=== PATIENT | female | born 1950 | race Caucasian/White ===

== ENCOUNTER 2017-07-26 21:41 | Emergency (ER) | payer BC, OTHER ==
[2017-07-26] MEDS ORDERED: NA CHLORIDE 0.9% 1,000 ML ONE (22:47)
[2017-07-26] MEDS ORDERED: FENTANYL CITR 100 MCG/2 ML ONE (22:47)
[2017-07-26] MEDS ORDERED: ONDANSETRON 4 MG/2 ML VIAL ONE (22:47)
[2017-07-26 23:02] LABS: Absolute Monocytes 0.9 K/uL (0.1-1.3); Absolute Neutrophil 8.1 K/uL (1.8-8.0); Basophils % 0.5 % (0-1.3); Eosinophils % 1.7 % (0-4.4); Hematocrit 33.4 % (36.0-45.0); Lymphocytes % 17.9 % (15.3-44.8); MCH 31.4 pg (27.0-35.0); MCV 92.1 fL (80-100); MPV 7.3 fL (7.6-11.3); Monocytes % 8.3 % (3.3-12.3); RBC Red Blood Cell Count 3.63 M/uL (3.86-4.86)
[2017-07-26 23:09] LABS: Protime INR 1.11
[2017-07-26 23:11] LABS: Potassium 3.8 mEq/L (3.6-5.0)
[2017-07-26 23:17] LABS: Albumin 3.8 g/dL (3.2-5.5); Bilirubin Direct 0.1 mg/dL (0-0.2); Bilirubin Total 0.6 mg/dL (0.3-1.2); Magnesium 1.9 mg/dL (1.8-2.5); Protein, Total 6.8 g/dL (6.0-8.3)
[2017-07-26 23:19] LABS: CKMB Creatine Kinase MB 1.3 ng/ml (0.3-4.0)
[2017-07-27] MEDS ORDERED: MORPHINE 10 MG/ML VIAL ONE (00:30)
[2017-07-27] MEDS ORDERED: ONDANSETRON 4 MG/2 ML VIAL ONE (00:32)
--- NOTE | 2017-07-27 01:10 | ER ---
Nurse's Notes [facility] Name: Alise Snow Age: 66 yrs Sex: Female : 1950 Arrival Date: 07/26/2017 Time: 21:43 Bed 7 Private MD: Diagnosis: Headache;Urinary tract infection, site not specified;Migraine;Nausea Presentation: 07/26 21:47 Presenting complaint: Patient states: I have had a migraine and been nauseous since la1 1400. I have tried my PRN toradol at home and its not helping. Transition of care: patient was not received from another setting of care. Onset of symptoms was July 26, 2017. Care prior to arrival: None. 21:47 Method Of Arrival: Wheelchair la1 21:47 Acuity: GONZÁLEZ 3 la1 07/27 01:45 Mechanism of Injury: No Mechanism of Injury. tl1 Triage Assessment: 07/26 22:37 Headache History: The patient has had previous headaches. General: Appears in no ao apparent distress. comfortable. General: Behavior is calm, cooperative, appropriate for age. Pain: Pain currently is 10 out of 10 on a pain scale. Pain began 2-3 days ago. Also complains of no other associated symptoms. Historical: - Allergies: 21:52 Potassium Chloride; can only take IV form; la1 21:52 Uknown abx (triliptipine?); la1 - PMHx: 21:52 Diabetes - NIDDM; High Cholesterol; Anemia; Anxiety; Migraines; Hypertension; CHF; la1 COPD; back pain; CVA; TIA; - PSHx: 21:52 stent for aneurysm in brain; heart cath; Cholecystectomy; Hysterectomy; la1 - Immunization history:: Adult Immunizations up to date. - Social history:: Smoking status: Patient/guardian denies using tobacco. - Family history:: not pertinent. Screenin:36 Abuse screen: Denies threats or abuse. Denies injuries from another. Nutritional ao screening: No deficits noted. Tuberculosis screening: No symptoms or risk factors identified. Fall Risk None identified. Assessment: 22:32 General: Appears in no apparent distress. comfortable, Behavior is calm, cooperative, ao appropriate for age. Pain: Complains of pain in Migraine. Neuro: Level of Consciousness is awake, alert, obeys commands, Oriented to person, place, time, situation, Appropriate for age Moves all extremities. Speech is normal, Facial symmetry appears normal, Pupils are PERRLA. Cardiovascular: Capillary refill < 3 seconds Patient's skin is warm and dry. Respiratory: Airway is patent Respiratory effort is even, unlabored, Respiratory pattern is regular, symmetrical. GI: Abdomen is obese. : No signs and/or symptoms were reported regarding the genitourinary system. EENT: No signs and/or symptoms were reported regarding the EENT system. Derm: No signs and/or symptoms reported regarding the dermatologic system. Musculoskeletal: No signs and/or symptoms reported regarding the musculoskeletal system. 23:32 Reassessment: Patient appears in no apparent distress at this time. Patient and/or ao family updated on plan of care and expected duration. Pain level reassessed. Patient is alert, oriented x 3, equal unlabored respirations, skin warm/dry/pink. Patient still had pain. Dr Alamo notified. 07/27 00:39 Reassessment: Patient appears in no apparent distress at this time. Patient and/or ao family updated on plan of care and expected duration. Pain level reassessed. Patient is alert, oriented x 3, equal unlabored respirations, skin warm/dry/pink. 01:44 Reassessment: Patient and/or family updated on plan of care and expected duration. Pain tl1 level reassessed. Patient is alert, oriented x 3, equal unlabored respirations, skin warm/dry/pink. Patient states feeling better. Patient states symptoms have improved. Vital Signs: 07/26 21:52 BP 178 / 80; Pulse 57; Resp 16; Temp 98.1; Pulse Ox 100% on R/A; Weight 124.74 kg; la1 Height 5 ft. 1 in. (154.94 cm); 23:32 BP 158 / 66; Pulse 56; Resp 16; Pulse Ox 100% ; ao 07/27 00:20 BP 114 / 60; Pulse 55; Resp 16; Pulse Ox 100% ; ao 01:34 BP 159 / 77; Pulse 59; Resp 16; Temp 98.1; Pulse Ox 98% ; Pain 5/10; tl1 07/26 21:52 Body Mass Index 51.96 (124.74 kg, 154.94 cm) la1 ED Course: 07/26 21:43 Patient arrived in ED. es 21:48 Triage completed. la1 21:53 Arm band placed on left wrist. la1 22:12 Maurice Pino RN is Primary Nurse. ao 22:25 Juan Alamo MD is Attending Physician. jam 22:32 Inserted saline lock: 20 gauge in left antecubital area, using aseptic technique. ao ,using aseptic technique. Using ultrasound guided. 22:36 Patient has correct armband on for positive identification. Pulse ox on. NIBP on. ao 22:36 No provider procedures requiring assistance completed. ao 22:41 Head Brain Wo Cont CT In Process Unspecified. EDMS 23:29 XRAY Chest (1 view) In Process Unspecified. EDMS 04 00:50 Head angio In Process Unspecified. EDMS 01:09 Jefry Sam MD is Referral Physician. jam 01:27 Urine Dipstick--Ancillary (enter results) Sent. tl1 01:45 IV discontinued, intact, bleeding controlled, No redness/swelling at site. Pressure tl1 dressing applied. Administered Medications: 07/26 22:55 Drug: Zofran 4 mg Route: IVP; Site: left antecubital; ao 07/27 00:59 Follow up: Response: No adverse reaction ao 07/26 22:58 Drug: fentaNYL (PF) 50 mcg Route: IVP; Site: left antecubital; ao 07/27 00:58 Follow up: Response: No adverse reaction ao 00:58 Follow up: Response: Pain is unchanged, physician notified ao 07/26 23:00 Drug: NS 0.9% 1000 ml Route: IV; Rate: 1 bolus; Site: left antecubital; ao 07/27 01:48 Follow up: IV Status: Completed infusion tl1 00:54 Drug: Zofran 4 mg Route: IVP; Site: left antecubital; ao 01:26 Follow up: Response: No adverse reaction; Nausea is decreased tl1 00:58 Drug: morphine 2 mg Route: IVP; Site: left antecubital; ao 01:47 Follow up: Response: No adverse reaction; Marked relief of symptoms; Pain is decreased tl1 01:24 Drug: Rocephin - (cefTRIAXone) 1 grams Route: IVPB; Infused Over: 30 mins; Site: left tl1 antecubital; 01:38 Follow up: IV Status: Completed infusion tl1 01:24 Drug: Cipro 500 mg Route: PO; tl1 01:46 Follow up: Response: No adverse reaction; No change in condition tl1 01:25 Drug: Benadryl 25 mg Route: IVP; Infused Over: 2 mins; Site: left antecubital; tl1 01:46 Follow up: Response: No adverse reaction; Marked relief of symptoms; Pain is decreased tl1 01:26 Drug: TORadol 30 mg Route: IVP; Infused Over: 2 mins; Site: left antecubital; tl1 01:46 Follow up: Response: No adverse reaction; Marked relief of symptoms; Pain is decreased tl1 01:36 Drug: morphine 2 mg Route: IVP; Infused Over: 2 mins; Site: left antecubital; tl1 01:47 Follow up: Response: No adverse reaction; Marked relief of symptoms; Pain is decreased tl1 Outcome: 01:09 Discharge ordered by MD. polk 01:45 Discharged to home via wheelchair, with family. tl1 01:45 Condition: improved 01:45 Discharge instructions given to patient, family, Instructed on discharge instructions, follow up and referral plans. medication usage, Demonstrated understanding of instructions, follow-up care, medications, Prescriptions given X 3. 01:48 Patient left the ED. tl1 Addendum: 07/30/2017 08:22 Addendum: Culture Results: Positive urine culture. Bacteria is resistant to, has i w intermediate sensitivity, or is not tested against prescribed antibiotics. Report given to LORIE for further evaluation and then to industrial locomotive operator for follow up with patient. Phone call Attempt #1 pt phone is disconnected. Signatures: Dispatcher [employer] Juan Gill MD MD cha Salyer, Edna es Williams, Irene, RN RN iw Attema, Lee, RN RN la1 Amelia Heath RN RN tl1 Maurice Pino RN RN ao Corrections: (The following items were deleted from the chart) 07/27 01:36 00:20 BP 114 / 60; Pulse 55bpm; Resp 16bpm; Pulse Ox 100%; Pain 0/10; ao ao
--- NOTE | 2017-07-27 01:10 | EDPHYS ---
Physician Documentation [facility] Name: Alise Snow Age: 66 yrs Sex: Female : 1950 Arrival Date: 07/26/2017 Time: 21:43 Bed 7 Private MD: ED Physician Juan Alamo HPI: 07/26 22:34 This 66 yrs old Female presents to ER via Wheelchair with complaints of jam Headache. 22:34 The patient complains of pain to the top of head, forehead, left frontal area, left jam side of the back of head, left occipital area, right frontal area, right side of the back of head and right temporal area. The patient describes the headache as constant. Onset: The symptoms/episode began/occurred yesterday. Associated signs and symptoms: Pertinent positives: nausea. Severity of symptoms: At its worst the pain was moderate, in the emergency department the pain is unchanged. Headache History: The patient has had previous headaches and this one is similar to previous episodes. The symptoms are alleviated by nothing. the symptoms are aggravated by nothing. The patient has experienced similar episodes in the past, several times. Historical: - Allergies: 21:52 Potassium Chloride; can only take IV form; la1 21:52 Uknown abx (triliptipine?); la1 - PMHx: 21:52 Diabetes - NIDDM; High Cholesterol; Anemia; Anxiety; Migraines; Hypertension; CHF; la1 COPD; back pain; CVA; TIA; - PSHx: 21:52 stent for aneurysm in brain; heart cath; Cholecystectomy; Hysterectomy; la1 - Immunization history:: Adult Immunizations up to date. - Social history:: Smoking status: Patient/guardian denies using tobacco. - Family history:: not pertinent. ROS: 22:34 Constitutional: Negative for fever, chills, and weight loss, Eyes: Negative for injury, jam pain, redness, and discharge, ENT: Negative for injury, pain, and discharge, Neck: Negative for injury, pain, and swelling, Cardiovascular: Negative for chest pain, palpitations, and edema, Respiratory: Negative for shortness of breath, cough, wheezing, and pleuritic chest pain, Abdomen/GI: Negative for abdominal pain, nausea, vomiting, diarrhea, and constipation, Back: Negative for injury and pain, : Negative for injury, bleeding, discharge, and swelling, MS/Extremity: Negative for injury and deformity, Skin: Negative for injury, rash, and discoloration, Psych: Negative for depression, anxiety, suicide ideation, homicidal ideation, and hallucinations, Allergy/Immunology: Negative for hives, rash, and allergies, Endocrine: Negative for neck swelling, polydipsia, polyuria, polyphagia, and marked weight changes, Hematologic/Lymphatic: Negative for swollen nodes, abnormal bleeding, and unusual bruising. 22:34 Neuro: Positive for headache. Exam: 22:34 Constitutional: This is a well developed, well nourished patient who is awake, alert, jam and in no acute distress. Head/Face: Normocephalic, atraumatic. Eyes: Pupils equal round and reactive to light, extra-ocular motions intact. Lids and lashes normal. Conjunctiva and sclera are non-icteric and not injected. Cornea within normal limits. Periorbital areas with no swelling, redness, or edema. ENT: Nares patent. No nasal discharge, no septal abnormalities noted. Tympanic membranes are normal and external auditory canals are clear. Oropharynx with no redness, swelling, or masses, exudates, or evidence of obstruction, uvula midline. Mucous membranes moist. Neck: Trachea midline, no thyromegaly or masses palpated, and no cervical lymphadenopathy. Supple, full range of motion without nuchal rigidity, or vertebral point tenderness. No Meningismus. Chest/axilla: Normal chest wall appearance and motion. Nontender with no deformity. No lesions are appreciated. Cardiovascular: Regular rate and rhythm with a normal S1 and S2. No gallops, murmurs, or rubs. Normal PMI, no JVD. No pulse deficits. Respiratory: Lungs have equal breath sounds bilaterally, clear to auscultation and percussion. No rales, rhonchi or wheezes noted. No increased work of breathing, no retractions or nasal flaring. Abdomen/GI: Soft, non-tender, with normal bowel sounds. No distension or tympany. No guarding or rebound. No evidence of tenderness throughout. Back: No spinal tenderness. No costovertebral tenderness. Full range of motion. Skin: Warm, dry with normal turgor. Normal color with no rashes, no lesions, and no evidence of cellulitis. MS/ Extremity: Pulses equal, no cyanosis. Neurovascular intact. Full, normal range of motion. Neuro: Awake and alert, GCS 15, oriented to person, place, time, and situation. Cranial nerves II-XII grossly intact. Motor strength 5/5 in all extremities. Sensory grossly intact. Cerebellar exam normal. Normal gait. Psych: Awake, alert, with orientation to person, place and time. Behavior, mood, and affect are within normal limits. 22:34 Neck: ROM/movement: is normal, no acute changes, Meningeal signs: are not present, Kernig's sign is negative, Brudzinski's sign is negative. Vital Signs: 21:52 BP 178 / 80; Pulse 57; Resp 16; Temp 98.1; Pulse Ox 100% on R/A; Weight 124.74 kg; la1 Height 5 ft. 1 in. (154.94 cm); 23:32 BP 158 / 66; Pulse 56; Resp 16; Pulse Ox 100% ; ao 07/27 00:20 BP 114 / 60; Pulse 55; Resp 16; Pulse Ox 100% ; ao 01:34 BP 159 / 77; Pulse 59; Resp 16; Temp 98.1; Pulse Ox 98% ; Pain 5/10; tl1 07/26 21:52 Body Mass Index 51.96 (124.74 kg, 154.94 cm) la1 MDM: 07/26 22:25 Patient medically screened. [facility] 22:37 Data reviewed: vital signs, nurses notes, lab test result(s), EKG, radiologic studies, [facility] CT scan, plain films. 07/26 22:33 Order name: Basic Metabolic Panel; Complete Time: 00:09 [facility] 07/26 22:33 Order name: BNP [facility] 07/26 22:33 Order name: CBC with Diff; Complete Time: 00:09 [facility] 07/26 22:33 Order name: Ckmb; Complete Time: 00:10 [facility] 07/26 22:33 Order name: CPK; Complete Time: 00: [facility] 07/26 22:33 Order name: LFT's; Complete Time: 00:10 [facility] 07/26 22:33 Order name: Magnesium; Complete Time: 00:10 [facility] 07/26 22:33 Order name: PT-INR; Complete Time: 00:09 [facility] 07/26 22:33 Order name: Ptt, Activated; Complete Time: 00:09 [facility] 07/26 22:33 Order name: Troponin (emerg Dept Use Only); Complete Time: 00:10 [facility] 07/26 22:33 Order name: Lipase; Complete Time: 00:09 [facility] 07/26 22:33 Order name: Urine Culture [facility] 07/27 00:58 Order name: Urine Dipstick--Ancillary (enter results) em1 07/27 00:58 Order name: Urine Dipstick-Ancillary [facility] 07/26 21:58 Order name: Head Brain Wo Cont CT la1 07/26 22:33 Order name: XRAY Chest (1 view) [facility] 07/26 22:33 Order name: EKG; Complete Time: 22:34 [facility] 07/26 22:33 Order name: Cardiac monitoring; Complete Time: 23:26 [facility] 07/26 22:33 Order name: EKG - Nurse/Tech; Complete Time: 23:26 [facility] 07/26 23:57 Order name: Head angio [facility] 07/26 22:33 Order name: IV Saline Lock; Complete Time: 22:38 [facility] 07/26 22:33 Order name: Labs collected and sent; Complete Time: 22:38 [facility] 07/26 22:33 Order name: O2 Per Protocol; Complete Time: 22:38 [facility] 07/26 22:33 Order name: O2 Sat Monitoring; Complete Time: 22:38 [facility] 07/26 22:33 Order name: Urine Dipstick-Ancillary (obtain specimen); Complete Time: 00:48 [facility] Administered Medications: 22:55 Drug: Zofran 4 mg Route: IVP; Site: left antecubital; ao 07/27 00:59 Follow up: Response: No adverse reaction ao 07/26 22:58 Drug: fentaNYL (PF) 50 mcg Route: IVP; Site: left antecubital; ao 07/27 00:58 Follow up: Response: No adverse reaction ao 00:58 Follow up: Response: Pain is unchanged, physician notified ao 07/26 23:00 Drug: NS 0.9% 1000 ml Route: IV; Rate: 1 bolus; Site: left antecubital; ao 07/27 01:48 Follow up: IV Status: Completed infusion tl1 00:54 Drug: Zofran 4 mg Route: IVP; Site: left antecubital; ao 01:26 Follow up: Response: No adverse reaction; Nausea is decreased tl1 00:58 Drug: morphine 2 mg Route: IVP; Site: left antecubital; ao 01:47 Follow up: Response: No adverse reaction; Marked relief of symptoms; Pain is decreased tl1 01:24 Drug: Rocephin - (cefTRIAXone) 1 grams Route: IVPB; Infused Over: 30 mins; Site: left tl1 antecubital; 01:38 Follow up: IV Status: Completed infusion tl1 01:24 Drug: Cipro 500 mg Route: PO; tl1 01:46 Follow up: Response: No adverse reaction; No change in condition tl1 01:25 Drug: Benadryl 25 mg Route: IVP; Infused Over: 2 mins; Site: left antecubital; tl1 01:46 Follow up: Response: No adverse reaction; Marked relief of symptoms; Pain is decreased tl1 01:26 Drug: TORadol 30 mg Route: IVP; Infused Over: 2 mins; Site: left antecubital; tl1 01:46 Follow up: Response: No adverse reaction; Marked relief of symptoms; Pain is decreased tl1 01:36 Drug: morphine 2 mg Route: IVP; Infused Over: 2 mins; Site: left antecubital; tl1 01:47 Follow up: Response: No adverse reaction; Marked relief of symptoms; Pain is decreased tl1 Disposition: 07/27/17 01:09 Discharged to Home. Impression: Headache, Urinary tract infection, site not specified, Migraine, Nausea. - Condition is Stable. - Discharge Instructions: General Headache Without Cause, Urinary Tract Infection, Urinary Tract Infection, [id number], Migraine Headache, [id number], General Headache Without Cause, [id number]. - Prescriptions for Fioricet with Codeine 50- 325-40-30 mg Oral capsule - take 1 capsule by ORAL route every 4 hours as needed not to exceed 6 capsules per 24hrs; 20 capsule. Cipro 250 mg Oral Tablet - take 1 tablet by ORAL route every 12 hours; 14 tablet. Zofran 4 mg Oral Tablet - take 1 tablet by ORAL route every 12 hours As needed; 20 tablet. - Medication Reconciliation Form, Thank You Letter, Antibiotic Education, Prescription Opioid Use form. - Follow up: Private Physician; When: 2 - 3 days; Reason: Recheck today's complaints, Continuance of care, Re-evaluation by your physician. Follow up: Jefry Sam; When: 2 - 3 days; Reason: Recheck today's complaints, Re-evaluation by your physician. - Problem is new. - Symptoms have improved. Signatures: Dispatcher [employer] Juan Gill MD MD cha Attema, Lee RN RN la1 Amelia Heath RN RN tl1 Maurice Pino RN RN ao
[2017-07-27] MEDS ORDERED: CIPROFLOXACIN HCL 500 MG TAB ONE (01:12)
[2017-07-27] MEDS ORDERED: CEFTRIAXONE/SWI 1gm 1 GM/10 ML SYR ONE (01:13)
[2017-07-27] MEDS ORDERED: KETOROLAC 30 MG/ML INJ ONE (01:18)
[2017-07-27] MEDS ORDERED: DIPHENHYDRAMINE 50 MG/ML VIAL ONE (01:18)
[2017-07-27 01:54] VITALS: TEMP 98.1
[2017-07-27 01:57] VITALS: BP 159/77; O2SAT 98
[2017-07-27 02:01] LABS: Urine Blood NEGATIVE (NEG); Urine Glucose NEGATIVE (NEG); Urine Protein NEGATIVE (NEG); Urine pH 6.5 (5.0-7.0)
--- NOTE | 2017-07-27 06:38 | RAD REPORT ---
EXAM DESCRIPTION: CT - Head Brain Wo Cont - 07/27/2017 1:35 am CLINICAL HISTORY: Headache A preliminary written report was provided at the time of the study, and the report was reviewed prio r to final dictation. COMPARISON: None. TECHNIQUE: Axial 5 mm thick images of the head were obtained without IV contrast. All CT scans are performed using dose optimization technique as appropriate and may include automated exposure control or mA/KV adjustment according to patient size. FINDINGS: No intracranial hemorrhage, mass, edema or shift of mid-line structures. No acute cortical based infarction is identifiable. Approximately 3 centimeter area of encephalomalacia is present in the posterior left parietal occipital junction. This has the appearance of old CVA. There is slight e nlargement of the atrium of the left lateral ventricle in response to the volume loss. No abnormal ex tra-axial fluid collections. Overall ventricle size is normal. No significant atrophy or chronic isch emic change present. Patient has previously undergone coiling of the left-side [place] aneurysm. This creates belinda y substantial spray artifact limiting detail on several slices of this examination. Mastoid air cells and visualized portions of the paranasal sinuses are clear. No acute bony findings. IMPRESSION: No hemorrhage or acute intracranial finding. Old CVA in the posterior left parietal occipital junction. Substantial spray artifact from [place] aneurysm treatment limits brain parenchymal assessme nt on several images.
--- NOTE | 2017-07-27 06:50 | RAD REPORT ---
EXAM DESCRIPTION: CT - Head angio - 07/27/2017 1:34 am CLINICAL HISTORY: Headache, nausea, prior CVA, prior intravascular treatment of an aneurysm A preliminary written report was provided at the time of the study, and the report was reviewed prio r to final dictation. COMPARISON: CT head same date TECHNIQUE: During dynamic enhancement using nonionic IV contrast, axial 1 millimeter thick images we re generated. Coronal and sagittal reformatted images were generated and reviewed. FINDINGS: Prior intravascular treatment of aneurysm near the supraclinoid terminus of the internal c arotid artery on the left creates substantial spray artifact over multiple images. There is substanti al limitation in vascular assessment on these affected images. With these limitations in mind, elsewhere the vasculature shows no aneurysm or malformation. No focal luminal narrowing seen. No subarachnoid hemorrhage suspected on this examination or the CT head stud y. IMPRESSION: No aneurysm or vascular malformation identified. Patient has had prior intravascular treatment of an aneurysm near the left internal carotid artery te rminus. This creates a substantial spray artifact affecting the vasculature most commonly associated with aneurysms. If there are ongoing concerns for aneurysm, traditional digital subtraction angiography would be need ed. MR imaging would not be helpful in this setting.
--- NOTE | 2017-07-27 08:27 | EKG ---
Test Date: 2017-07-26 Test Time: 22:51:11 Certified Hyperbaric Technologist: LANI MEASUREMENT RESULTS: Intervals: Rate: 53 CT: 186 QRSD: 88 QT: 492 QTc: 461 [place]: P: 79 CT: 186 QRS: -14 T: 50 INTERPRETIVE STATEMENTS: Sinus bradycardia Low voltage QRS Borderline ECG No previous ECG available for comparison Electronically Signed On 07-27-17 08:25:36 CDT by Momo Cotnreras
--- NOTE | 2017-07-27 08:29 | RAD REPORT ---
EXAM DESCRIPTION: RAD - Chest Single View - 07/26/2017 11:31 pm CLINICAL HISTORY: Cough COMPARISON: None. TECHNIQUE: AP portable chest image was obtained 2320 hours . FINDINGS: Normal volume. No peripheral consolidation or mass identified. Vague nodular density along the left heart shadow border in the lower left lung field is probably a summation artifact. Portable imaging and body habitus limit assessment. Mediastinum is prominent due to slight rotation, body hab itus and portable imaging. Trachea is midline. Heart and vasculature are normal. No measurable pleura l effusion and no pneumothorax. No gross bony abnormality seen. No acute aortic findings suspected. IMPRESSION: No acute cardiopulmonary process. Exam is limited due to portable technique and large body habitus. Followup two view imaging could be obtained for further assessment.
== END 2017-07-27 01:48 | disposition home or self-care (01) ==
LOC: ER 21:41
DX: N39.0 Urinary tract infection, site not specified (principal); G43.909 Migraine, unspecified, not intractable, without status migrainosus; R11.0 Nausea; I10 Essential (primary) hypertension; Z88.1 Allergy status to other antibiotic agents; Z91.048 Other nonmedicinal substance allergy status; Z86.73 Personal history of transient ischemic attack (TIA), and cerebral infarction without residual deficits
CPT/HCPCS: 36415; 70450; 70496; 71045; 80048; 80076; 81003; 82550; 82553; 83690; 83735; 83880; 84484; 85025; 85610; 85730; 87077; 87086; 87088; 87186; 93005; 96361; 96374; 96375; 99284; J0696; J2405; J3010; J7030; Q9967

== ENCOUNTER 2017-08-02 19:39 | Emergency (ER) | payer BC, OTHER ==
[2017-08-02] MEDS ORDERED: DIPHENHYDRAMINE 50 MG/ML VIAL ONE (21:05)
[2017-08-02] MEDS ORDERED: KETOROLAC 30 MG/ML INJ ONE ×2 (21:05→21:19)
[2017-08-02] MEDS ORDERED: NA CHLORIDE 0.9% 0 ML ONE (21:05)
[2017-08-02] MEDS ORDERED: METOCLOPRAMIDE 10 MG/2mL INJ ONE (21:05)
[2017-08-02] MEDS ORDERED: METOCLOPRAMIDE 5 MG TAB ONE (21:19)
[2017-08-02] MEDS ORDERED: HYDROCODONE/APAP 10/325 TAB ONE (22:14)
--- NOTE | 2017-08-02 22:31 | EDPHYS ---
Physician Documentation [facility] Name: Alise Snow Age: 66 yrs Sex: Female : 1950 Arrival Date: 08/02/2017 Time: 19:40 Bed 18 Private MD: out of town, doctor ED Physician Napoleon Blue HPI: 08/02 22:28 This 66 yrs old Female presents to ER via Wheelchair with complaints of kb Headache > 24hrs Old, Nausea. 22:28 The patient complains of pain to the top of head. The patient describes the headache as kb constant. Onset: The symptoms/episode began/occurred 3 day(s) ago. Associated signs and symptoms: Pertinent positives: nausea, Photophobia. Severity of symptoms: At its worst the pain was moderate, in the emergency department the pain is unchanged. Headache History: The patient has had previous headaches and this one is similar to previous episodes. The symptoms are alleviated by nothing. the symptoms are aggravated by lights, noise. The patient has experienced similar episodes in the past, chronically. The patient has been recently seen by a physician:. Pt reports migraine since Wednesday. Received botox on Wednesday with no relief. . Historical: - Allergies: 20:01 Triamterene; aa1 20:01 POTASSIUM CHLORIDE; can only take IV form; aa1 - Home Meds: 20:01 Fioricet with Codeine 47-463-07-30 mg oral cap 1 cap every 4 hours [Active]; Zofran (as aa1 hydrochloride) 4 mg Oral tab [Active]; Cipro 250 mg Oral tab 1 tab every 12 hours [Active]; 20:12 Xanax 0.5 mg Oral tab [Active]; amitriptyline 50 mg Oral tab 1 tab once daily [Active]; aa1 Klonopin 2 mg Oral tab [Active]; dicyclomine 20 mg Oral tab [Active]; Lasix 20 mg Oral tab [Active]; duloxetine 60 mg oral cpDR [Active]; Generlac 10 gram/15 mL oral soln [Active]; levocetirizine 5 mg oral tab 1 tab once daily [Active]; lovastatin 40 mg Oral tab [Active]; montelukast 10 mg oral tab [Active]; mupirocin calcium 2 % topical crea [Active]; olmesartan-hydrochlorothiazide oral oral [Active]; spironolactone 25 mg Oral tab [Active]; topiramate 25 mg oral tab [Active]; Zenpep 5,000-17,000 -27,000 unit oral cpDR [Active]; zolpidem 10 mg Oral tab [Active]; - PMHx: 20:01 Anemia; Anxiety; Back pain; CHF; COPD; CVA; Diabetes - NIDDM; High Cholesterol; aa1 Hypertension; Migraines; TIA; - PSHx: 20:01 stent for aneurysm in brain; heart cath; Cholecystectomy; Hysterectomy; aa1 - Immunization history:: Adult Immunizations up to date. - Social history:: Smoking status: Patient/guardian denies using tobacco. ROS: 22:28 Constitutional: Negative for fever, chills, and weight loss, Cardiovascular: Negative kb for chest pain, palpitations, and edema, Respiratory: Negative for shortness of breath, cough, wheezing, and pleuritic chest pain, Abdomen/GI: Negative for abdominal pain, nausea, vomiting, diarrhea, and constipation, Back: Negative for injury and pain, : Negative for injury, bleeding, discharge, and swelling, MS/Extremity: Negative for injury and deformity, Skin: Negative for injury, rash, and discoloration. 22:28 Neuro: Positive for headache. Exam: 22:28 Constitutional: This is a well developed, well nourished patient who is awake, alert, kb and in no acute distress. Head/Face: Normocephalic, atraumatic. Chest/axilla: Normal chest wall appearance and motion. Nontender with no deformity. No lesions are appreciated. Cardiovascular: Regular rate and rhythm with a normal S1 and S2. No gallops, murmurs, or rubs. Normal PMI, no JVD. No pulse deficits. Respiratory: Lungs have equal breath sounds bilaterally, clear to auscultation and percussion. No rales, rhonchi or wheezes noted. No increased work of breathing, no retractions or nasal flaring. Abdomen/GI: Soft, non-tender, with normal bowel sounds. No distension or tympany. No guarding or rebound. No evidence of tenderness throughout. Skin: Warm, dry with normal turgor. Normal color with no rashes, no lesions, and no evidence of cellulitis. MS/ Extremity: Pulses equal, no cyanosis. Neurovascular intact. Full, normal range of motion. Neuro: Awake and alert, GCS 15, oriented to person, place, time, and situation. Cranial nerves II-XII grossly intact. Motor strength 5/5 in all extremities. Sensory grossly intact. Cerebellar exam normal. Normal gait. Vital Signs: 20:01 BP 153 / 78; Pulse 57; Resp 18; Temp 98.1; Pulse Ox 97% on R/A; Weight 124.74 kg; aa1 Height 5 ft. 1 in. (154.94 cm); Pain 10/10; 22:09 BP 140 / 65; Pulse 54; Resp 18; Pulse Ox 98% on R/A; jd3 22:55 BP 160 / 87; Pulse 54; Resp 18 S; Pulse Ox 97% on R/A; jd3 08/03 00:23 BP 139 / 74; Pulse 55; Resp 18 S; Pulse Ox 100% on R/A; Pain 3/10; jd3 08/02 20:01 Body Mass Index 51.96 (124.74 kg, 154.94 cm) aa1 Felt Coma Score: 08/02 22:28 Eye Response: spontaneous(4). Verbal Response: oriented(5). Motor Response: obeys kb commands(6). Total: 15. MDM: 20:14 Patient medically screened. kb 22:28 Data reviewed: vital signs, nurses notes. Data interpreted: Pulse oximetry: on room air kb is 98 %. Interpretation: normal. Counseling: I had a detailed discussion with the patient and/or guardian regarding: the historical points, exam findings, and any diagnostic results supporting the discharge/admit diagnosis, the need for outpatient follow up, a neurologist, to return to the emergency department if symptoms worsen or persist or if there are any questions or concerns that arise at home. 08/02 20:38 Order name: IV Start; Complete Time: 22:59 jd3 Administered Medications: 21:13 Not Given (Other Intervention Used): NS 0.9% 500 ml IV at bolus once kb 21:13 Not Given (Other Intervention Used): TORadol 30 mg IVP once kb 21:13 Not Given (Other Intervention Used): Reglan 10 mg IVP once; over 1 to 2 minutes kb 21:13 Not Given (Duplicate Order): Benadryl 12.5 mg IVP once kb 21:34 Drug: Benadryl 25 mg Route: IM; Site: right deltoid; jd3 22:58 Follow up: Response: No adverse reaction jd3 :34 Drug: TORadol 60 mg Route: IM; Site: right deltoid; jd3 :59 Follow up: Response: Pain is unchanged, physician notified jd3 :34 Drug: Reglan 10 mg Route: PO; jd3 :59 Follow up: Response: No adverse reaction jd3 22:21 Drug: Totz 10 mg-325 mg 1 tabs Route: PO; jd3 :59 Follow up: Response: Pain is unchanged, physician notified jd3 23:16 Drug: Demerol 25 mg Route: IVP; Site: left hand; jd3 08/03 00:24 Follow up: Response: No adverse reaction; Pain is decreased jd3 08/02 23:17 Drug: NS 0.9% 500 ml Route: IV; Rate: bolus; Site: left hand; jd3 08/03 00:21 Follow up: Response: Pain is decreased; IV Status: Completed infusion; IV Intake: 500ml jd3 Disposition: 00:55 Co-signature as Attending Physician, Napoleon Blue MD I agree with the assessment and kdr plan of care. Disposition: 08/02/17 22:30 Discharged to Home. Impression: Migraine. - Condition is Stable. - Discharge Instructions: Migraine Headache, [id number]. - Medication Reconciliation Form, Thank You Letter, Antibiotic Education, Prescription Opioid Use form. - Follow up: Emergency Department; When: As needed; Reason: Worsening of condition. Follow up: Private Physician; When: 2 - 3 days; Reason: Recheck today's complaints, Continuance of care, Re-evaluation by your physician. Signatures: Kathy Morgan, RIAN-C RIAN-Jo-Ann Salazar, RN RN aa1 Napoleon Blue MD MD kdr Toni Eaton RN RN jd3
--- NOTE | 2017-08-02 22:31 | ER ---
Nurse's Notes [facility] Name: Alise Snow Age: 66 yrs Sex: Female : 1950 Arrival Date: 08/02/2017 Time: 19:40 Bed 18 Private MD: out of town, doctor Diagnosis: Migraine Presentation: 08/02 19:54 Presenting complaint: Patient states: migraine x 4 days. Reports hx of chronic aa1 migraines and has been doing Botox injections for her symptoms but states this one won't go away. Transition of care: patient was not received from another setting of care. Onset of symptoms was July 30, 2017. Initial Sepsis Screen: Does the patient meet any 2 criteria? No. Patient's initial sepsis screen is negative. Does the patient have a suspected source of infection? No. Patient's initial sepsis screen is negative. Care prior to arrival: None. 19:54 Method Of Arrival: Wheelchair aa1 19:54 Acuity: GONZÁLEZ 3 aa1 Triage Assessment: 20:01 Headache History: The patient has had previous headaches and this one is similar to aa1 previous episodes. General: Appears in no apparent distress. uncomfortable, Behavior is calm, cooperative, appropriate for age. 20:16 Pain: Pain at worst was 10 out of 10 on a pain scale. Pain began 2 hours ago. Also jd3 complains of nausea. Historical: - Allergies: 20:01 Triamterene; aa1 20:01 POTASSIUM CHLORIDE; can only take IV form; aa1 - Home Meds: 20:01 Fioricet with Codeine 23-070-08-30 mg oral cap 1 cap every 4 hours [Active]; Zofran (as aa1 hydrochloride) 4 mg Oral tab [Active]; Cipro 250 mg Oral tab 1 tab every 12 hours [Active]; 20:12 Xanax 0.5 mg Oral tab [Active]; amitriptyline 50 mg Oral tab 1 tab once daily [Active]; aa1 Klonopin 2 mg Oral tab [Active]; dicyclomine 20 mg Oral tab [Active]; Lasix 20 mg Oral tab [Active]; duloxetine 60 mg oral cpDR [Active]; Generlac 10 gram/15 mL oral soln [Active]; levocetirizine 5 mg oral tab 1 tab once daily [Active]; lovastatin 40 mg Oral tab [Active]; montelukast 10 mg oral tab [Active]; mupirocin calcium 2 % topical crea [Active]; olmesartan-hydrochlorothiazide oral oral [Active]; spironolactone 25 mg Oral tab [Active]; topiramate 25 mg oral tab [Active]; Zenpep 5,000-17,000 -27,000 unit oral cpDR [Active]; zolpidem 10 mg Oral tab [Active]; - PMHx: 20:01 Anemia; Anxiety; Back pain; CHF; COPD; CVA; Diabetes - NIDDM; High Cholesterol; aa1 Hypertension; Migraines; TIA; - PSHx: 20:01 stent for aneurysm in brain; heart cath; Cholecystectomy; Hysterectomy; aa1 - Immunization history:: Adult Immunizations up to date. - Social history:: Smoking status: Patient/guardian denies using tobacco. Screenin:15 Abuse screen: Denies threats or abuse. Nutritional screening: No deficits noted. jd3 Tuberculosis screening: No symptoms or risk factors identified. Fall Risk Gait- Weak (10 pts.). Total Carson Fall Scale indicates No Risk (0-24 pts). Assessment: 20:13 General: Appears uncomfortable, Behavior is calm, cooperative, appropriate for age. jd3 Pain: Complains of pain in head Quality of pain is described as aching, pressure, throbbing. Neuro: Level of Consciousness is awake, alert, obeys commands, Oriented to person, place, time, situation, Pupils are PERRLA. Cardiovascular: Heart tones S1 S2 present Capillary refill < 3 seconds Patient's skin is warm and dry. Respiratory: Airway is patent Respiratory effort is even, unlabored, Respiratory pattern is regular, symmetrical, Breath sounds are clear bilaterally. GI: Abdomen is round Bowel sounds present X 4 quads. Abd is soft Abdomen is tender to palpation in right upper quadrant and right lower quadrant Reports nausea. : No signs and/or symptoms were reported regarding the genitourinary system. EENT: No signs and/or symptoms were reported regarding the EENT system. Derm: Skin is intact, Skin is dry, Skin is normal, Skin temperature is warm. Musculoskeletal: Circulation, motion, and sensation intact. Range of motion: intact in all extremities. 21:30 Reassessment: Patient appears in no apparent distress at this time. No changes from jd3 previously documented assessment. Patient and/or family updated on plan of care and expected duration. Pain level reassessed. Patient is alert, oriented x 3, equal unlabored respirations, skin warm/dry/pink. 22:56 Reassessment: Patient appears in no apparent distress at this time. No changes from jd3 previously documented assessment. Patient and/or family updated on plan of care and expected duration. Pain level reassessed. Patient is alert, oriented x 3, equal unlabored respirations, skin warm/dry/pink. pt reporting not wanting to leave because headache is still present, provider notified, new orders received, see MAR. 08/03 00:22 Reassessment: Patient appears in no apparent distress at this time. Patient and/or jd3 family updated on plan of care and expected duration. Pain level reassessed. Patient is alert, oriented x 3, equal unlabored respirations, skin warm/dry/pink. pt reported understanding of discharge instructions, assisted pt to front of ER with wheelchair Patient states feeling better. Vital Signs: 08/02 20:01 BP 153 / 78; Pulse 57; Resp 18; Temp 98.1; Pulse Ox 97% on R/A; Weight 124.74 kg; aa1 Height 5 ft. 1 in. (154.94 cm); Pain 10/10; 22:09 BP 140 / 65; Pulse 54; Resp 18; Pulse Ox 98% on R/A; jd3 22:55 BP 160 / 87; Pulse 54; Resp 18 S; Pulse Ox 97% on R/A; jd3 08/03 00:23 BP 139 / 74; Pulse 55; Resp 18 S; Pulse Ox 100% on R/A; Pain 3/10; jd3 08/02 20:01 Body Mass Index 51.96 (124.74 kg, 154.94 cm) aa1 Jose Luis Coma Score: 08/02 22:28 Eye Response: spontaneous(4). Verbal Response: oriented(5). Motor Response: obeys kb commands(6). Total: 15. ED Course: 19:40 Patient arrived in ED. am2 19:41 out of town, doctor is Private Physician. am2 19:57 Triage completed. aa1 20:01 Arm band placed on right wrist. Patient placed in an exam room, Patient notified of aa1 wait time. 20:13 Toni Eaton RN is Primary Nurse. jd3 20:14 Kathy Morgan [facility]C [facility]. kb 20:14 Napoleon Blue MD is Attending Physician. kb 20:16 Patient has correct armband on for positive identification. Bed in low position. Call j light in reach. Side rails up X2. Adult w/ patient. 21:12 Missed attempt(s): 22 gauge in right antecubital area. Bleeding controlled, band aid fc applied, catheter tip intact. 21:14 Missed attempt(s): 24 gauge in right hand. Bleeding controlled, band aid applied, fc catheter tip intact. 22:59 Inserted saline lock: 24 gauge in left hand, using aseptic technique. placed by Aj [facility] Tech. 08/03 00:22 No provider procedures requiring assistance completed. IV discontinued, intact, jd3 bleeding controlled, No redness/swelling at site. Pressure dressing applied. Administered Medications: 08/02 21:13 Not Given (Other Intervention Used): NS 0.9% 500 ml IV at bolus once kb 21:13 Not Given (Other Intervention Used): TORadol 30 mg IVP once kb 21:13 Not Given (Other Intervention Used): Reglan 10 mg IVP once; over 1 to 2 minutes kb 21:13 Not Given (Duplicate Order): Benadryl 12.5 mg IVP once kb 21:34 Drug: Benadryl 25 mg Route: IM; Site: right deltoid; jd3 22:58 Follow up: Response: No adverse reaction jd3 21:34 Drug: TORadol 60 mg Route: IM; Site: right deltoid; jd3 22:59 Follow up: Response: Pain is unchanged, physician notified jd3 21:34 Drug: Reglan 10 mg Route: PO; jd3 22:59 Follow up: Response: No adverse reaction jd3 22:21 Drug: [place] 10 mg-325 mg 1 tabs Route: PO; jd3 22:59 Follow up: Response: Pain is unchanged, physician notified jd3 23:16 Drug: Demerol 25 mg Route: IVP; Site: left hand; jd3 08/03 00:24 Follow up: Response: No adverse reaction; Pain is decreased jd3 08/02 23:17 Drug: NS 0.9% 500 ml Route: IV; Rate: bolus; Site: left hand; jd3 08/03 00:21 Follow up: Response: Pain is decreased; IV Status: Completed infusion; IV Intake: 500ml jd3 Intake: 00:21 IV: 500ml; Total: 500ml. jd3 Outcome: 08/02 22:30 Discharge ordered by MD. guillaume 08/03 00:22 Discharged to home via wheelchair, with family. jd3 Condition: stable Discharge instructions given to patient, family, Instructed on discharge instructions, follow up and referral plans. Demonstrated understanding of instructions, follow-up care. 00:24 Patient left the ED. jd3 Signatures: Kathy Morgan, CLINICAL ASSESSMENT MANAGER-C RIAN-Jo-Ann Salazar RN RN aa1 Perla Morris RN RN Yojana Cummings Jonathon, RN RN jd3 Corrections: (The following items were deleted from the chart) 08/02 23:48 22:56 Reassessment: Patient appears in no apparent distress at this time. No changes jd3 from previously documented assessment. Patient and/or family updated on plan of care and expected duration. Pain level reassessed. Patient is alert, oriented x 3, equal unlabored respirations, skin warm/dry/pink. jd3
[2017-08-02] MEDS ORDERED: MEPERIDINE HCL 25 MG/0.5 ML ONE (23:08)
[2017-08-02] MEDS ORDERED: NA CHLORIDE 0.9% 500 ML ONE (23:08)
[2017-08-03 00:36] VITALS: TEMP 98.1
[2017-08-03 00:40] VITALS: BP 139/74; O2SAT 100
== END 2017-08-03 00:24 | disposition home or self-care (01) ==
LOC: ER 19:39
DX: G43.909 Migraine, unspecified, not intractable, without status migrainosus (principal); I10 Essential (primary) hypertension; E11.9 Type 2 diabetes mellitus without complications; E78.00 Pure hypercholesterolemia, unspecified; I50.9 Heart failure, unspecified; F41.9 Anxiety disorder, unspecified; Z88.8 Allergy status to other drugs, medicaments and biological substances
CPT/HCPCS: 96361; 96372; 96374; 99283; J2175; J2765

== ENCOUNTER 2017-08-25 18:44 | Emergency (ER) | payer BC, OTHER ==
[2017-08-25] MEDS ORDERED: KETOROLAC 30 MG/ML INJ ONE (20:53)
[2017-08-25] MEDS ORDERED: METOCLOPRAMIDE 10 MG/2mL INJ ONE (20:53)
[2017-08-25] MEDS ORDERED: DIPHENHYDRAMINE 50 MG/ML VIAL ONE (20:53)
[2017-08-25] MEDS ORDERED: DEXAMETHASONE 10 MG/ML VIAL ONE (20:53)
[2017-08-25] MEDS ORDERED: NA CHLORIDE 0.9% 1,000 ML ONE (20:54)
[2017-08-25] MEDS ORDERED: FENTANYL CITR 100 MCG/2 ML ONE (22:06)
--- NOTE | 2017-08-25 22:32 | ER ---
Nurse's Notes [facility] Name: Alise Snow Age: 66 yrs Sex: Female : 1950 Arrival Date: 08/25/2017 Time: 18:47 Bed 18 Private MD: out of town, doctor Diagnosis: Migraine Presentation: 08/25 19:08 Presenting complaint: Patient states: migraine headache since this morning, pt states la1 she woke up with it. reports vomiting x1 today. Transition of care: patient was not received from another setting of care. Onset of symptoms was August 25, 2017. Initial Sepsis Screen: Does the patient meet any 2 criteria? No. Patient's initial sepsis screen is negative. Does the patient have a suspected source of infection? No. Patient's initial sepsis screen is negative. Care prior to arrival: None. 19:08 Method Of Arrival: Wheelchair la1 19:08 Acuity: GONZÁLEZ 3 la1 Triage Assessment: 20:17 Headache History: The patient has had previous headaches and this one is similar to jd3 previous episodes. General: Appears uncomfortable, Behavior is calm, cooperative, appropriate for age. Pain: Complains of pain in head. Historical: - Allergies: 19:09 POTASSIUM CHLORIDE; can only take IV form; la1 19:09 Triamterene; la1 - PMHx: 19:09 Anemia; Anxiety; Back pain; CHF; COPD; CVA; Diabetes - NIDDM; High Cholesterol; la1 Hypertension; Migraines; TIA; - Immunization history:: Adult Immunizations up to date. - Social history:: Smoking status: Patient/guardian denies using tobacco. Screenin:13 Abuse screen: Denies threats or abuse. Nutritional screening: No deficits noted. jd3 Tuberculosis screening: No symptoms or risk factors identified. Fall Risk Ambulatory Aid- Crutches/Cane/Walker (15 pts). Gait- Weak (10 pts.). Mental Status- Oriented to own ability (0 pts). Total Carson Fall Scale indicates Low Risk Score (25-44 pts). Fall prevention measures have been instituted. Side Rails Up X 2 Placed close to Nursing Station Frequent Obs/Assesments occuring Family Present and informed to notify staff if they need to leave bedside. Assessment: 20:14 General: Appears uncomfortable, Behavior is calm, cooperative, appropriate for age. jd3 Pain: Complains of pain in head Pain currently is 10 out of 10 on a pain scale. Quality of pain is described as aching, sharp, Pain began pt states "since this morning." Is continuous, Also complains of nausea. Neuro: Level of Consciousness is awake, alert, obeys commands, Oriented to person, place, time, situation. Cardiovascular: Heart tones S1 S2 present Capillary refill < 3 seconds Patient's skin is warm and dry. Respiratory: Airway is patent Respiratory effort is even, unlabored, Respiratory pattern is regular, symmetrical, Breath sounds are clear bilaterally. GI: Abdomen is round obese, Bowel sounds present X 4 quads. Abd is soft and non tender X 4 quads. Reports nausea, vomiting. : No signs and/or symptoms were reported regarding the genitourinary system. EENT: No signs and/or symptoms were reported regarding the EENT system. Derm: Skin is intact, Skin is dry, Skin is normal, Skin temperature is warm. Musculoskeletal: Circulation, motion, and sensation intact. Range of motion: intact in all extremities. 21:00 Reassessment: Patient appears in no apparent distress at this time. Patient and/or jd3 family updated on plan of care and expected duration. Pain level reassessed. Patient is alert, oriented x 3, equal unlabored respirations, skin warm/dry/pink. 22:02 Reassessment: Patient appears in no apparent distress at this time. Patient and/or jd3 family updated on plan of care and expected duration. Pain level reassessed. Patient is alert, oriented x 3, equal unlabored respirations, skin warm/dry/pink. 23:00 Reassessment: Patient appears in no apparent distress at this time. Patient and/or jd3 family updated on plan of care and expected duration. Pain level reassessed. Patient is alert, oriented x 3, equal unlabored respirations, skin warm/dry/pink. pt reported understanding of discharge instructions. Vital Signs: 19:09 BP 165 / 76; Pulse 62; Resp 19; Temp 98.2; Pulse Ox 100% on R/A; Weight 124.74 kg; la1 Height 5 ft. 1 in. (154.94 cm); 20:18 BP 172 / 77; Pulse 60; Resp 19 S; Pulse Ox 98% on R/A; Pain 10/10; jd3 22:01 BP 165 / 92; Pulse 64; Resp 18 S; Pulse Ox 97% on R/A; jd3 23:03 BP 168 / 86; Pulse 68; Resp 18 S; Pulse Ox 98% on R/A; Pain 7/10; jd3 19:09 Body Mass Index 51.96 (124.74 kg, 154.94 cm) la1 ED Course: 18:47 Patient arrived in ED. mr 18:47 out of town, doctor is Private Physician. mr 19:08 Triage completed. la1 19:09 Arm band placed on right wrist. la1 20:13 Toni Eaton, RN is Primary Nurse. jd3 20:18 Patient has correct armband on for positive identification. Bed in low position. Call jd3 light in reach. Side rails up X2. Adult w/ patient. 20:20 Inserted saline lock: 20 gauge in right antecubital area, using aseptic technique. jd3 [facility]. 20:34 Vishnu Blackowod PA is PHCP. jr8 20:34 Juan Alamo MD is Attending Physician. jr8 22:[address] via stretcher. nj 22:20 CT Head Brain wo Cont In Process Unspecified. EDMS 22:20 CT completed. Patient tolerated procedure well. Patient moved back from CT. nj 23:00 No provider procedures requiring assistance completed. IV discontinued, intact, jd3 bleeding controlled, No redness/swelling at site. Pressure dressing applied. Administered Medications: 21:14 Drug: TORadol 30 mg Route: IVP; Site: right antecubital; jd3 22:09 Follow up: Response: No adverse reaction jd3 21:15 Drug: NS 0.9% 1000 ml Route: IV; Rate: 1000 ml; Site: right antecubital; jd3 22:08 Follow up: Response: No adverse reaction; IV Status: Completed infusion; IV Intake: jd3 1000ml 21:15 Drug: Reglan 10 mg Route: IVP; Site: right antecubital; jd3 22:09 Follow up: Response: No adverse reaction jd3 21:15 Drug: Benadryl 25 mg Route: IVP; Site: right antecubital; jd3 22:09 Follow up: Response: No adverse reaction jd3 21:15 Drug: Decadron - Dexamethasone 10 mg Route: IVP; Site: right antecubital; jd3 22:09 Follow up: Response: No adverse reaction jd3 22:08 Drug: fentaNYL (PF) 50 mcg Route: IVP; Site: right antecubital; jd3 23:03 Follow up: Response: No adverse reaction jd3 Intake: 22:08 IV: 1000ml; Total: 1000ml. jd3 Outcome: 22:31 Discharge ordered by MD. rivera 23:02 Discharged to home via wheelchair, with family. jd3 23:02 Condition: stable 23:02 Discharge instructions given to patient, family, Instructed on discharge instructions, follow up and referral plans. Demonstrated understanding of instructions, follow-up care. 23:03 Patient left the ED. jd3 Signatures: Dispatcher [employer] Courtney Lauren Josh, PA PA jr8 Attema, Lee RN RN Donnell Hart Jonathon, RN RN jd3 Corrections: (The following items were deleted from the chart) 23:02 23:00 Inserted saline lock: 20 gauge in right antecubital area, using aseptic jd3 technique. [facility] jd3
--- NOTE | 2017-08-25 22:32 | EDPHYS ---
Physician Documentation [facility] Name: Alise Snow Age: 66 yrs Sex: Female : 1950 Arrival Date: 08/25/2017 Time: 18:47 Bed 18 Private MD: out of town, doctor ED Physician Juan Alamo HPI: 08/25 21:02 This 66 yrs old Female presents to ER via Wheelchair with complaints of jr8 Headache, Nausea/Vomiting. 21:02 The patient complains of pain to the diffuse . The patient describes the headache as jr8 throbbing. Onset: The symptoms/episode began/occurred acutely, today. Associated signs and symptoms: Pertinent positives: nausea, Photophobia. Severity of symptoms: At its worst the pain was moderate, in the emergency department the pain is unchanged. Headache History: The patient has had previous headaches and this one is different than previous episodes. The symptoms are alleviated by nothing. the symptoms are aggravated by lights, movement, noise. The patient has not recently seen a physician. Historical: - Allergies: 19:09 POTASSIUM CHLORIDE; can only take IV form; la1 19:09 Triamterene; la1 - PMHx: 19:09 Anemia; Anxiety; Back pain; CHF; COPD; CVA; Diabetes - NIDDM; High Cholesterol; la1 Hypertension; Migraines; TIA; - Immunization history:: Adult Immunizations up to date. - Social history:: Smoking status: Patient/guardian denies using tobacco. ROS: 21:02 Eyes: Negative for injury, pain, redness, and discharge, ENT: Negative for injury, jr8 pain, and discharge, Neck: Negative for injury, pain, and swelling, Cardiovascular: Negative for chest pain, palpitations, and edema, Respiratory: Negative for shortness of breath, cough, wheezing, and pleuritic chest pain, Abdomen/GI: Negative for abdominal pain, nausea, vomiting, diarrhea, and constipation, Back: Negative for injury and pain, MS/Extremity: Negative for injury and deformity, Skin: Negative for injury, rash, and discoloration. 21:02 Neuro: Positive for headache, Negative for altered mental status, dizziness, gait disturbance, hearing loss, loss of consciousness, numbness, seizure activity, speech changes, syncope, near syncope, tingling, tinnitus, tremor, visual changes, weakness. Exam: 21:02 Head/Face: Normocephalic, atraumatic. Eyes: Pupils equal round and reactive to light, jr8 extra-ocular motions intact. Lids and lashes normal. Conjunctiva and sclera are non-icteric and not injected. Cornea within normal limits. Periorbital areas with no swelling, redness, or edema. ENT: Nares patent. No nasal discharge, no septal abnormalities noted. Tympanic membranes are normal and external auditory canals are clear. Oropharynx with no redness, swelling, or masses, exudates, or evidence of obstruction, uvula midline. Mucous membranes moist. Neck: Trachea midline, no thyromegaly or masses palpated, and no cervical lymphadenopathy. Supple, full range of motion without nuchal rigidity, or vertebral point tenderness. No Meningismus. Cardiovascular: Regular rate and rhythm with a normal S1 and S2. No gallops, murmurs, or rubs. Normal PMI, no JVD. No pulse deficits. Respiratory: Lungs have equal breath sounds bilaterally, clear to auscultation and percussion. No rales, rhonchi or wheezes noted. No increased work of breathing, no retractions or nasal flaring. Abdomen/GI: Soft, non-tender, with normal bowel sounds. No distension or tympany. No guarding or rebound. No evidence of tenderness throughout. Back: No spinal tenderness. No costovertebral tenderness. Full range of motion. Skin: Warm, dry with normal turgor. Normal color with no rashes, no lesions, and no evidence of cellulitis. MS/ Extremity: Pulses equal, no cyanosis. Neurovascular intact. Full, normal range of motion. Neuro: Awake and alert, GCS 15, oriented to person, place, time, and situation. Cranial nerves II-XII grossly intact. Motor strength 5/5 in all extremities. Sensory grossly intact. Cerebellar exam normal. Normal gait. Vital Signs: 19:09 BP 165 / 76; Pulse 62; Resp 19; Temp 98.2; Pulse Ox 100% on R/A; Weight 124.74 kg; la1 Height 5 ft. 1 in. (154.94 cm); 20:18 BP 172 / 77; Pulse 60; Resp 19 S; Pulse Ox 98% on R/A; Pain 10/10; jd3 22:01 BP 165 / 92; Pulse 64; Resp 18 S; Pulse Ox 97% on R/A; jd3 23:03 BP 168 / 86; Pulse 68; Resp 18 S; Pulse Ox 98% on R/A; Pain 7/10; jd3 19:09 Body Mass Index 51.96 (124.74 kg, 154.94 cm) la1 MDM: 20:34 Patient medically screened. jr8 21:54 Data reviewed: vital signs, nurses notes, radiologic studies, CT scan. Data jr8 interpreted: Pulse oximetry: on room air is 98 %. Interpretation: normal. Counseling: I had a detailed discussion with the patient and/or guardian regarding: the historical points, exam findings, and any diagnostic results supporting the discharge/admit diagnosis, radiology results, the need for outpatient follow up, a neurologist, to return to the emergency department if symptoms worsen or persist or if there are any questions or concerns that arise at home. ED course: Patient has only minimally improved. Will medicate again and do CT of head since she has aneurismal history . 22:30 ED course: Patient feeling better now after fentanyl . 8 08/25 21:54 Order name: CT Head Brain wo Cont jr8 08/25 20:34 Order name: IV; Complete Time: 21:15 jr8 Administered Medications: 21:14 Drug: TORadol 30 mg Route: IVP; Site: right antecubital; jd3 22:09 Follow up: Response: No adverse reaction jd3 21:15 Drug: NS 0.9% 1000 ml Route: IV; Rate: 1000 ml; Site: right antecubital; jd3 22:08 Follow up: Response: No adverse reaction; IV Status: Completed infusion; IV Intake: jd3 1000ml 21:15 Drug: Reglan 10 mg Route: IVP; Site: right antecubital; jd3 22:09 Follow up: Response: No adverse reaction jd3 21:15 Drug: Benadryl 25 mg Route: IVP; Site: right antecubital; jd3 22:09 Follow up: Response: No adverse reaction jd3 21:15 Drug: Decadron - Dexamethasone 10 mg Route: IVP; Site: right antecubital; jd3 22:09 Follow up: Response: No adverse reaction jd3 22:08 Drug: fentaNYL (PF) 50 mcg Route: IVP; Site: right antecubital; jd3 23:03 Follow up: Response: No adverse reaction jd3 Disposition: 08/26 07:14 Co-signature as Attending Physician, Juan Alamo MD I agree with the assessment and jam plan of care. Disposition: 08/25/17 22:31 Discharged to Home. Impression: Migraine. - Condition is Stable. - Discharge Instructions: Migraine Headache. - Medication Reconciliation Form, Thank You Letter, Antibiotic Education, Prescription Opioid Use form. - Follow up: Private Physician; When: 1 - 2 days; Reason: Recheck today's complaints, Continuance of care, Re-evaluation by your physician. - Problem is new. - Symptoms have improved. Signatures: Dispatcher [employer] Juan Gill MD MD cha Roszak, Josh, PA PA jr8 Chi George RN RN la1 Toni Eaton RN RN jd3 Corrections: (The following items were deleted from the chart) 08/25 23:03 22:31 08/25/2017 22:31 Discharged to Home. Impression: Migraine. Condition is Stable. jd3 Forms are Medication Reconciliation Form, Thank You Letter, Antibiotic Education, Prescription Opioid Use. Follow up: Private Physician; When: 1 - 2 days; Reason: Recheck today's complaints, Continuance of care, Re-evaluation by your physician. Problem is new. Symptoms have improved. jr8
[2017-08-25 23:11] VITALS: TEMP 98.2
[2017-08-25 23:15] VITALS: BP 168/86; O2SAT 98
--- NOTE | 2017-08-26 08:20 | RAD REPORT ---
EXAM DESCRIPTION: CT - Head Brain Wo Cont - 08/26/2017 5:59 am CLINICAL HISTORY: Headache, vomiting COMPARISON: 07/26/2017 TECHNIQUE: All CT scans are performed using dose optimization technique as appropriate and may inclu de automated exposure control or mA/KV adjustment according to patient size. FINDINGS: No intracranial hemorrhage, hydrocephalus or extra-axial fluid collection.Gliosis is seen left posterior parietal region related to old infarct.No areas of brain edema or evidence of midline shift. Aneurysm coil left carotid terminus noted. The paranasal sinuses and mastoids are clear. The calvarium is intact. IMPRESSION: No acute intracranial abnormality.
== END 2017-08-25 23:03 | disposition home or self-care (01) ==
LOC: ER 18:44
DX: G43.909 Migraine, unspecified, not intractable, without status migrainosus (principal); I10 Essential (primary) hypertension; Z88.8 Allergy status to other drugs, medicaments and biological substances
CPT/HCPCS: 70450; 96361; 96374; 96375; 99284; J1100; J2765; J3010; J7030